=== PATIENT | female | born 1975 | race Asian ===

== ENCOUNTER 2022-07-05 05:18 | Inpatient (IN) | payer BC ==
[2022-07-03 11:52] LABS: CLARITY,URINE SLIGHTLY CLOUDY (Clear); COLOR,URINE YELLOW (Yellow); GLUCOSE, URINE NEGATIVE (Neg); KETONES,URINE NEGATIVE (Neg); LEUKOCYTE ESTERASE ,URINE SMALL (Neg); NITRITES, URINE NEGATIVE (Neg); OCCULT BLOOD,URINE MODERATE (Neg); PH,URINE 6.5 (4.8-8.0); PROTEIN,URINE NEGATIVE (Neg); UROBILINOGEN,URINE 0.2 E.U/dL (0.2-1.0)
[2022-07-03 11:53] LABS: UA COLLECTION TYPE CLN CATCH MIDSTREAM
[2022-07-03 11:57] LABS: BASOPHILS # (AUTO) 0.1 X10'3 (0-0.2); BASOPHILS % (AUTO) 0.8 % (0-1); EOSINOPHILS # (AUTO) 0.2 X10'3 (0-0.9); EOSINOPHILS % (AUTO) 2.4 % (0-6); LYMPHOCYTES # (AUTO) 2.2 X10'3 (1.1-4.8); LYMPHOCYTES % (AUTO) 31.2 % (21-51); MEAN CORPUSCULAR HEMOGLOBIN 30.8 PG (27.0-31.0); MEAN CORPUSCULAR HGB CONC 33.9 g/dL (33.0-36.5); MEAN CORPUSCULAR VOLUME 90.8 FL (78-98); MEAN PLATELET VOLUME 6.6 FL (7.4-10.4); MONOCYTES # (AUTO) 0.7 X10'3 (0-0.9); MONOCYTES % (AUTO) 9.4 % (2-12); NEUTROPHILS % (AUTO) 56.2 % (42-75); PRE OP HEMATOCRIT 40.4 % (35.0-45.0); PRE OP HEMOGLOBIN 13.7 g/dL (12.0-16.0); PRE OP PLATELET COUNT 424 X10'3 (140-440); RED BLOOD COUNT 4.45 X10'6 (4.20-5.60); RED CELL DISTRIBUTION WIDTH 13.5 % (11.5-14.5)
[2022-07-03 11:58] LABS: SQUAMOUS EPITHELIAL CELL,UR MANY /LPF (FEW)
[2022-07-03 12:00] LABS: BACTERIA,URINE FEW /HPF (Neg); WBC CLUMPS,URINE FEW /HPF (NEGATIVE)
[2022-07-03 12:18] LABS: ALBUMIN 4.1 G/DL (3.4-5.0); ALBUMIN/GLOBULIN RATIO 1.1 (1.1-1.5); ALKALINE PHOSPHATASE 53 IU/L (46-116); BLOOD UREA NITROGEN 5 MG/DL (7-18); CHLORIDE 104 MMOL/L (99-107); PRE OP ALT 21 U/L (30-65); PRE OP ANION GAP 9 (8-16); PRE OP AST 13 U/L (10-37); PRE OP BILIRUB, TOTAL 0.3 MG/DL (0.0-1.0); PRE OP GLUCOSE 113 MG/DL (70-104); PRE OP POTASSIUM 3.4 MMOL/L (3.4-5.1); PRE OP SODIUM 139 MMOL/L (135-145); TOTAL CARBON DIOXIDE 26.1 MMOL/L (24-32); TOTAL PROTEIN 7.9 G/DL (6.4-8.2); eGFR > 90 ML/MIN
[2022-07-03 12:19] LABS: HCG SERUM QL NEGATIVE
[2022-07-05] VITALS (18 sets, daily range): BP systolic 94–130; BP diastolic 58–86
[~2022-07-05] VITALS: Ht 152.4 cm; Wt 55.2 kg
[~2022-07-05 05:18] MED LIST: AMLO10TA PO; CHOL20002 PO; FERR-28 PO; FLUO30CR VG; LEVO25TA7 PO; LOSA100T57 PO; ringers solution, lacted 1,000 ML IV SCH
[2022-07-05] MEDS ORDERED: phenazopyridine 100mg tablet PO ONE (05:30)
[2022-07-05] MEDS ORDERED: acetaminophen 325mg tablet PO ONE (05:30)
[2022-07-05] MEDS ORDERED: celeCOXIB 100mg capsule PO ONE (05:30)
[2022-07-05] MEDS ORDERED: ceFOXitin 2GM-NS 100mL ADDvant 100 ML IV ONE (05:30)
[2022-07-05] MEDS ORDERED: famotidine 20mg tablet PO ONE (05:30)
[2022-07-05] MEDS ORDERED: gabapentin 300mg capsule PO ONE (05:30)
[2022-07-05] MEDS ORDERED: vasoPRESSIN 20 units/ml inj. ONE (06:51)
[2022-07-05] MEDS ORDERED: rocuronium 10mg/ml inj IV ONE ×2 (07:26→11:10)
[2022-07-05] MEDS ORDERED: sevoflurane 250ml liquid IH ONE (07:26)
[2022-07-05] MEDS ORDERED: midazolam 1 mg/ML 2ml injection ONE (07:32)
[2022-07-05] MEDS ORDERED: fentaNYL /PF 50mcg/ml 5ml ampule ONE (07:35)
[2022-07-05] MEDS ORDERED: ringers solution, lacted 1,000 ML IV SCH (08:30)
[2022-07-05] MEDS ORDERED: meperidine/PF 25mg/ml syringe IV PRN ×3 (08:30)
[2022-07-05] MEDS ORDERED: ondansetron/PF 4mg/2ml inj IV PRN ×2 (08:30→11:50)
[2022-07-05] MEDS ORDERED: proCHLORperazine 10 MG/2 ml inj IV PRN (08:30)
[2022-07-05] MEDS ORDERED: morphine 4 MG/ML inj SYRINge IV PRN (08:30)
[2022-07-05] MEDS ORDERED: morphine 2 MG/ML inj. syringe IV PRN (08:30)
[2022-07-05] MEDS ORDERED: dexamethasone sod phosphate 4mg/ml inj. ONE (11:10)
[2022-07-05] MEDS ORDERED: acetaminophen 1,000mg/100ml IV 100 ML IV ONE (11:10)
[2022-07-05] MEDS ORDERED: propofol inj 20 ML IV ONE (11:10)
[2022-07-05] MEDS ORDERED: ondansetron/PF 4mg/2ml inj ONE (11:10)
[2022-07-05] MEDS ORDERED: glycopyrrolate 0.2mg/ml inj ONE (11:12)
[2022-07-05] MEDS ORDERED: neostigmine methylsulfate 1 MG/ML 10ml vial ONE (11:12)
--- NOTE | 2022-07-05 11:25 | NUR ---
Received from OR via SURGICAL BED , accompanied by Anesthesiologist ISIDRO and report given by Anesthesiolgist. PATIENT WITH 20G PIV IN LEFT UE RUNNING LR AT 100. ISLAND DRESSING LOW ABDOMEN THAT HAS ONE SMALL SPOT OF BLOOD PRESENT. [place] CATHETER PRESENT. VSS AT THIS TIME. 10L MASK ON WITH 100% SATURATIONS AT THIS TIME. SCDS DONNED UPON ARRIVAL. Addendum: 07/05/22 at 1145 by Renato Shepard RN, RN Amended: Links added.
[2022-07-05] MEDS ORDERED: mag hydrox/Alum hydrox/simeth 30ml oral suspension PO PRN (11:50)
[2022-07-05] MEDS ORDERED: diphenhydrAMINE 50 mg/ml inj IV PRN (11:50)
[2022-07-05] MEDS ORDERED: normal saline 500ML IV soln IV PRN (11:50)
[2022-07-05] MEDS ORDERED: normal saline 1000ml 1,000 ML IV SCH (11:50)
[2022-07-05] MEDS ORDERED: naloxone 0.4 mg/ml inj IV PRN (11:50)
[2022-07-05] MEDS ORDERED: LORazepam 2 mg/ml vial IV PRN (11:50)
[2022-07-05] MEDS ORDERED: temazepam 15mg capsule PO PRN (11:50)
[2022-07-05] MEDS: ringers solution, lacted 1,000 ML IV SCH ×2 (11:50→22:36)
[2022-07-05] MEDS ORDERED: phenazopyridine 100mg tablet PO PRN (11:50)
--- NOTE | 2022-07-05 12:25 | NUR ---
Report called to receiving nurse. Transferred via SURGICAL BED WITH NO Belongings . Special Issues communicated to receiving nurse OSCAR. OSCAR PRESENT TO ASSIST IN SET UP AND COMMENCE HIS PHYSICAL ASSESSMENT UPON PATIENT. PATIENT DRESSING IS ONLY SPOTTED IN SMALL PLACES AT THIS TIME. ALL CONTAINED WITHIN DRESSING. RN PRESENT AND AWARE OF THIS. PATIENT CARE TURNED OVER TO CASSY MOORE. Addendum: 07/05/22 at 1245 by Renato Gallagher - CASSY MADERA Amended: Links added.
[2022-07-05] MEDS: HYDROMORPHONE IV SCH ×2 (13:00→13:28)
[2022-07-05] MEDS: NORMAL SALINE IV SCH ×2 (13:00→13:28)
[2022-07-05] MEDS: simethicone 80mg chew tab PO SCH ×2 (14:29→18:00)
[2022-07-05] MEDS: acetaminophen 325mg tablet PO SCH ×2 (14:29→20:53)
[2022-07-05 14:57] LABS: BASOPHILS % (AUTO) 0.1 % (0-1); EOSINOPHILS % (AUTO) 0 % (0-6); HEMATOCRIT 36.2 % (35.0-45.0); HEMOGLOBIN 11.9 g/dl (12.0-16.0); LYMPHOCYTES # (AUTO) 0.7 X10'3 (1.1-4.8); LYMPHOCYTES % (AUTO) 3.3 % (21-51); MEAN CORPUSCULAR HEMOGLOBIN 30.1 PG (27.0-31.0); MEAN CORPUSCULAR VOLUME 91.4 FL (78-98); MEAN PLATELET VOLUME 6.7 FL (7.4-10.4); MONOCYTES # (AUTO) 1.1 X10'3 (0-0.9); MONOCYTES % (AUTO) 5.2 % (2-12); NEUTROPHILS # (AUTO) 20.1 X10'3 (1.8-7.7); NEUTROPHILS % (AUTO) 91.4 % (42-75); PLATELET COUNT 342 X10'3 (140-440); RED BLOOD COUNT 3.96 X10'6 (4.20-5.60); RED CELL DISTRIBUTION WIDTH 13.6 % (11.5-14.5)
[2022-07-05] MEDS ORDERED: PCA WASTE DOCUMENTATION MC PRN (15:15)
[2022-07-05] MEDS: HYDROmorph/NS 0.2 mg/ml PCA 100 ML IV SCH ×4 (15:38→23:00)
--- NOTE | 2022-07-05 16:11 | NUR ---
LEATHER CASE FINISHER documentation: I have reviewed and agree with all interventions, assessments performed and documented by Laura Reese LVN.
--- NOTE | 2022-07-05 18:05 | NUR ---
Patient in room ORTHO 4011. I have received report from SANTIAGO Sanchez and had the opportunity to ask questions and assume patient care.
--- NOTE | 2022-07-05 18:47 | NUR ---
Problems reprioritized. Patient report given, questions answered & plan of care reviewed with SANTIAGO Meraz.
[2022-07-05] MEDS: sennosides/docusate sodium tablet PO SCH (20:00)
[2022-07-05] MEDS: docusate sod 100mg capsule PO SCH ×2 (20:00→20:53)
[2022-07-06] MEDS: HYDROmorph/NS 0.2 mg/ml PCA 100 ML IV SCH ×5 (01:00→09:00)
--- NOTE | 2022-07-06 01:00 | NUR ---
Encouraged patient to walk and explained the importance of it and patient refused.
[2022-07-06 02:00] VITALS: BP 116/67
[2022-07-06] MEDS: acetaminophen 325mg tablet PO SCH ×2 (02:29→08:05)
[2022-07-06 06:00] VITALS: BP 127/69
--- NOTE | 2022-07-06 06:20 | NUR ---
Problems reprioritized. Patient report given, questions answered & plan of care reviewed with SANTIAGO Sanchez.
--- NOTE | 2022-07-06 06:25 | NUR ---
Patient in room ORTHO 4011. I have received report from SANTIAGO Meraz and had the opportunity to ask questions and assume patient care.
[2022-07-06 07:16] LABS: BASOPHILS % (AUTO) 0.3 % (0-1); EOSINOPHILS % (AUTO) 0 % (0-6); LYMPHOCYTES # (AUTO) 1.6 X10'3 (1.1-4.8); LYMPHOCYTES % (AUTO) 13.5 % (21-51); MEAN CORPUSCULAR HEMOGLOBIN 31.3 PG (27.0-31.0); MEAN CORPUSCULAR HGB CONC 34.4 g/dL (33.0-36.5); MEAN CORPUSCULAR VOLUME 90.9 FL (78-98); MEAN PLATELET VOLUME 6.8 FL (7.4-10.4); MONOCYTES # (AUTO) 1.5 X10'3 (0-0.9); NEUTROPHILS # (AUTO) 8.6 X10'3 (1.8-7.7); NEUTROPHILS % (AUTO) 73.2 % (42-75); PLATELET COUNT 326 X10'3 (140-440); RED BLOOD COUNT 3.19 X10'6 (4.20-5.60); RED CELL DISTRIBUTION WIDTH 13.5 % (11.5-14.5); WHITE BLOOD COUNT 11.8 X10'3 (4.5-11.0)
[2022-07-06 07:41] LABS: ALBUMIN 3.1 G/DL (3.4-5.0); ANION GAP 7 (8-16); BLOOD UREA NITROGEN 6 MG/DL (7-18); BUN/CREATININE RATIO 11.1 (6.6-38.0); CALCIUM 8.6 MG/DL (8.5-10.1); CHLORIDE 107 MMOL/L (99-107); CREATININE 0.54 MG/DL (0.40-0.90); GLUCOSE 117 MG/DL (70-104); POTASSIUM 3.5 MMOL/L (3.5-5.1); SODIUM 138 MMOL/L (135-145); TOTAL CARBON DIOXIDE 24.1 MMOL/L (24-32); eGFR > 90 ML/MIN
--- NOTE | 2022-07-06 07:59 | NUR ---
Co-signing "ENROLLMENT ADVISOR Use & Setting Checks" with confirmation of accurate documentation with SANTIAGO Sanchez, for 0500 & 0700.
[2022-07-06] MEDS ORDERED: levoTHYROXINE 25mcg tablet PO SCH (08:00)
[2022-07-06] MEDS ORDERED: amLODIPine 5mg tablet PO SCH (08:00)
[2022-07-06] MEDS ORDERED: losartan 50mg tablet PO SCH (08:00)
[2022-07-06] MEDS: sennosides/docusate sodium tablet PO SCH (08:04)
[2022-07-06 08:06] VITALS: BP_SYST 133
[2022-07-06] MEDS: simethicone 80mg chew tab PO SCH (08:06)
[2022-07-06] MEDS: docusate sod 100mg capsule PO SCH ×2 (08:16→08:17)
--- NOTE | 2022-07-06 12:00 | NUR ---
I have reviewed and agree with all interventions and assessments performed and documented by SANTIAGO Sanchez.
--- NOTE | 2022-07-06 12:45 | NUR ---
Patient discharge home with spouse. Discharge information was review with patient and her spouse, whom both verbalized understanding. Staff assisted resident to personal vehicle with all belongings.
== END 2022-07-06 13:36 | disposition home or self-care (01) | DRG 743 ==
LOC: PAS IN 05:18 → ORTHO 4S 12:35
PROVIDERS: ADMIT Obstetrics & Gynecology; ATTEND Obstetrics & Gynecology
PROC: 0UT70ZZ Resection of Bilateral Fallopian Tubes, Open Approach (ICD-10-PCS; 2022-07-05)
PROC: 0TSC0ZZ Reposition Bladder Neck, Open Approach (ICD-10-PCS; 2022-07-05)
PROC: 0TJB8ZZ Inspection of Bladder, Via Natural or Artificial Opening Endoscopic (ICD-10-PCS; 2022-07-05)
PROC: 0UT90ZZ Resection of Uterus, Open Approach (ICD-10-PCS; principal; 2022-07-05 07:26)
DX: D25.9 Leiomyoma of uterus, unspecified (principal); Z20.822 Contact with and (suspected) exposure to COVID-19; I10 Essential (primary) hypertension
CPT/HCPCS: Z7506; Z7508; 36415; 80048; 80053; 81001; 82948; 84443; 84703; 85025; 86885; 86900; 86901; 87081; 87088; 87811; 93005; A4355; A4357; A4618; A6250; A7000; C1758; G0378; J0131; J0690; J0694; J1100; J1170; J2250; J2405; J2704; J2710; J3010; J3490; J7030; J7060; J7120